=== PATIENT | male | born 1955 | race Caucasian/White ===

== ENCOUNTER 2024-06-19 19:50 | Emergency (ER) | payer SELFPAY ==
[~2024-06-19] VITALS: Ht 172.7 cm; Wt 81.0 kg
[2024-06-19 20:10] VITALS: TEMP 98.1; O2SAT 97
[2024-06-19] MEDS: IBUPROFEN 600MG TABLET PO STA (22:53)
[2024-06-19] MEDS ORDERED: IBUP-2029 PO (23:38)
[2024-06-19] MEDS: TRANEXAMIC ACID 1,000MG/10ML TP ONE (23:51)
[2024-06-19] MEDS: BACITRACIN ZINC OINT UDPKT TOP ONE (23:51)
[2024-06-19 23:56] VITALS: BP 120/70; PULSE 82; RESP 14; O2SAT 96
== END 2024-06-19 23:57 | disposition home or self-care (01) ==
LOC: ER 19:50
DX: S61.211A Laceration without foreign body of left index finger without damage to nail, initial encounter (principal); X58.XXXA Exposure to other specified factors, initial encounter; Y93.89 Activity, other specified; Y92.89 Other specified places as the place of occurrence of the external cause; Y99.8 Other external cause status
CPT/HCPCS: 73140; 99283; Z7610